=== PATIENT | male | born 1970 | race Caucasian/White ===

== ENCOUNTER 2017-03-01 17:59 | Emergency (ER) | payer OTHER ==
[~2017-03-01] VITALS: Ht 162.6 cm; Wt 65.8 kg
[~2017-03-01 17:59] MED LIST: ACULAR10 ML OP; ALLEGRA PO; ERYTHROMYCIN O3.5 G1 OP; GLUCOPHAGE500 M1 PO; LISINOPRIL5 MG PO; MULTI-VITAMIN1 EAC1 PO; TYLENOL #3 PO; VICODIN 5/500 T1 TAB PO
[2017-03-01] MEDS ORDERED: CELEXA20 M1 (18:11)
[2017-03-01] MEDS ORDERED: ASPIRIN EC81 M1 (18:11)
[2017-03-01] MEDS ORDERED: LANTUS100 U/ML (18:11)
== END 2017-03-01 19:12 | disposition home or self-care (01) ==
LOC: SED 17:59
DX: T15.02XA Foreign body in cornea, left eye, initial encounter (principal); E11.9 Type 2 diabetes mellitus without complications; Z23 Encounter for immunization; X58.XXXA Exposure to other specified factors, initial encounter
CPT/HCPCS: 90471; 90715; 99283